=== PATIENT | female | born 1950 | race Hispanic/Latino ===

== ENCOUNTER 2017-10-04 16:28 | Emergency (ER) | payer MEDICARE ==
[~2017-10-04] VITALS: Ht 129.5 cm; Wt 52.2 kg
[~2017-10-04 16:28] MED LIST: ASPIR-TRIN325 MG PO; ATORVASTATIN CA20 MG PO; ATORVASTATIN CA40 MG PO; AZELASTINE HCL6 ML OP; BECONASE AQ25 GM; BENZONATATE200 MG PO; CETIRIZINE HCL10 MG PO; CLOPIDOGREL75 MG PO; FERROUS SULFAT325 MG PO; GEMFIBROZIL600 MG PO; HYDROCHLOROTHIA25 MG PO; LOSARTAN POTAS100 MG PO; METFORMIN HCL1000 MG PO; METFORMIN HCL500 MG PO; METOPROLOL TART50 MG PO; NAPROXEN500 MG PO; NOVOLIN N100 UNIT/1 SQ; OXYBUTYNIN CHLOR5 MG PO; PATADAY2.5 ML OP; TYLENOL EXTRA500 MG PO; VENTOLIN HFA18 GM INH; VITAMIN D250000 UNIT PO
--- OUTSIDE RECORDS SUMMARY | 2017-10-04 16:31 | XMS REPORT ---
[facility] Address Unknown Phone Unavailable Care Team Providers Care Viscosity Inspector Name Role Phone Unavailable Unavailable Problems This patient has no known problems. Allergies, Adverse Reactions, Alerts This patient has no known allergies or adverse reactions. Medications This patient has no known medications. Encounters Start Date/Time End Date/Time Encounter Type Admission Type Attending [facility] Emergency Department Facility Care Department Encounter ID 2017-11-03 00:00:00 2017-11-03 00:00:00 Outpatient [facility] [id number] 2017-10-29 00:00:00 2017-10-29 00:00:00 Outpatient [facility] [id number] 2017-09-10 00:00:00 2017-09-10 00:00:00 Outpatient [facility] [id number] 2017-09-04 00:00:00 2017-09-04 00:00:00 Outpatient [facility] [id number] 2017-08-28 00:00:00 2017-08-28 00:00:00 Outpatient [facility] [id number] 2017-08-06 00:00:00 2017-08-06 00:00:00 Outpatient [facility] [id number] 2017-08-03 00:00:00 2017-08-03 00:00:00 Outpatient [facility] [id number] 2017-08-03 00:00:00 2017-08-03 00:00:00 Outpatient [facility] [id number] 2017-07-30 00:00:00 2017-07-30 00:00:00 Outpatient [facility] [id number] 2017-07-10 00:00:00 2017-07-10 00:00:00 Outpatient [facility] [id number] 2017-07-07 14:01:01 2017-07-07 14:01:01 Outpatient [facility] [id number] 2017-07-07 00:00:00 2017-07-07 00:00:00 Outpatient [facility] [id number] 2017-06-19 00:00:00 2017-06-19 00:00:00 Outpatient [facility] [id number] 2017-06-17 00:00:00 2017-06-17 00:00:00 Outpatient [facility] [id number] 2017-06-11 13:47:57 2017-06-11 13:47:57 Outpatient [facility] [id number] 2017-06-11 00:00:00 2017-06-11 00:00:00 Outpatient [facility] [id number] 2017-05-18 00:00:00 2017-05-18 00:00:00 Outpatient [facility] [id number] 2017-05-01 08:49:19 2017-05-01 08:49:19 Outpatient [facility] [id number] 2017-05-01 08:31:29 2017-05-01 08:31:29 Outpatient [facility] [id number] 2017-04-23 10:06:34 2017-04-23 10:06:34 Outpatient [facility] [id number] 2017-04-23 00:00:00 2017-04-23 00:00:00 Outpatient [facility] [id number] 2017-04-13 13:36:56 2017-04-13 13:36:56 Outpatient [facility] [id number] 2017-03-05 00:00:00 2017-03-05 00:00:00 Outpatient [facility] [id number] 2017-03-05 00:00:00 2017-03-05 00:00:00 Outpatient [facility] [id number] 2017-01-09 09:36:04 2017-01-09 09:36:04 Outpatient [facility] [id number] 2017-01-09 08:16:52 2017-01-09 08:16:52 Outpatient [facility] [id number] 2016-12-16 08:51:33 2016-12-16 08:51:33 Outpatient [facility] [id number]
[2017-10-04] MEDS ORDERED: KETOROLAC TROMETHAMINE 60 MG/2 ML VIAL IM ONE (17:30)
--- NOTE | 2017-10-04 18:22 | Diagnostic Imaging Report ---
EXAMINATION: CHEST 2 VIEWS INDICATION: \S\COUGH RHONCHI LEFT BASE \S\[id number] \S\1730 \S\Y COMPARISON: None FINDINGS: PA and lateral views TUBES and LINES: None. LUNGS: Lungs are well inflated. Lungs are clear. There is no evidence of pneumonia or pulmonary edema. PLEURA: No pleural effusion or pneumothorax. HEART AND MEDIASTINUM: The cardiomediastinal silhouette is unremarkable. Aorta is mildly calcified and tortuous. BONES AND SOFT TISSUES: No acute osseous lesion. Soft tissues are unremarkable. UPPER ABDOMEN: No free air under the diaphragm. IMPRESSION: No acute thoracic abnormality. Signed by: Dr. Tiburcio Mora MD on 10/04/2017 6:19 PM
[2017-10-04 18:40] VITALS: BP 200/85
== END 2017-10-04 18:53 | disposition home or self-care (01) ==
LOC: ER 16:28
DX: R05 Cough (principal); R51 Headache; J20.9 Acute bronchitis, unspecified; S16.1XXA Strain of muscle, fascia and tendon at neck level, initial encounter; I10 Essential (primary) hypertension; E11.9 Type 2 diabetes mellitus without complications; J44.9 Chronic obstructive pulmonary disease, unspecified
CPT/HCPCS: 71046; 99283; J1885